=== PATIENT | female | born 1940 | race Caucasian/White ===

== ENCOUNTER → 2016-06-22 | Outpatient (CLI) | payer MEDICARE, OTHER | END | disposition home or self-care (01) | LOC: RAD.S 12:50 | DX: Z12.31 Encounter for screening mammogram for malignant neoplasm of breast (principal) ==

== ENCOUNTER → 2016-08-20 | Outpatient (CLI) | payer MEDICARE, OTHER ==
--- NOTE | 2016-08-24 15:48 | SS ---
ADMIT: 08/20/2016 RM/LOC: [facility] MR#: [id number] [facility] [address] [place] [id number] DOMO DIAZ [address] [place] [address] Sleep Study SEX: F AGE: 75 : 1940 STUDY DATE: 08/20/2016 CLINICAL HISTORY: A 75-year-old female, body mass index of 35.8, 68 inches tall, 236 pounds, known history of obstructive sleep apnea, in the sleep lab for CPAP titration. TECHNICAL DESCRIPTION: CPAP titration performed on night of 08/20/2016, attended by a trained radiology technologist. TITRATION FINDINGS: TITRATION DESCRIPTION: The patient was titrated from 5 cm CPAP to 6 cm of CPAP. A ResMed AirFit P10 medium mask was used as interface. SLEEP: Total time bed is 393.5 minutes, total sleep time 335.5 minutes, sleep efficiency 85.3%. 47.3% hours spent in stage II sleep, 7.9% hours spent in stage REM. BREATHING: The patient had excellent resolution of obstructive sleep apnea. CPAP 6 cm. The patient was seen in REM sleep in lateral position only. REM supine sleep was not seen in the study. OXYGEN SATURATION: Mean sleeping 90%. CARDIAC: Average heart rate 68 beats per minute. MOVEMENTS/POSITION: During the study, the patient slept in the lateral position only with no significant leg movements. IMPRESSION AND PLAN: I recommend using CPAP at 6 cm with mask as mentioned above. Recommend losing weight, avoiding sedatives or alcohol. Refrain from driving if sleepy. Clinical correlation needed. CPAP compliance followup is recommended. Boyd Coppola MD/ shila JOB #: [id number] CC: David Valdovinos MD, Attending Physician David Valdovinos MD, Family Physician
== END | disposition home or self-care (01) ==
LOC: RESC 20:04
DX: G47.33 Obstructive sleep apnea (adult) (pediatric) (principal)